=== PATIENT | female | born 2005 | race Hispanic/Latino ===

== ENCOUNTER 2025-03-15 14:10 | Emergency (ER) | payer OTHER ==
[~2025-03-15] VITALS: Ht 172.7 cm; Wt 145.1 kg
[2025-03-15 14:38] VITALS: PULSE 87; RESP 19; TEMP 99.6; O2SAT 100
[2025-03-15] MEDS: NEOMYCIN/POLYMYX/BACITR OINT 0.9 GM PKT TOP ONE (17:27)
== END 2025-03-15 17:43 | disposition home or self-care (01) ==
LOC: ER 14:20
DX: S61.411A Laceration without foreign body of right hand, initial encounter (principal); W26.8XXA Contact with other sharp object(s), not elsewhere classified, initial encounter; Y99.0 Civilian activity done for income or pay
CPT/HCPCS: 99284